=== PATIENT | female | born 1995 | race Caucasian/White ===

== ENCOUNTER 2019-12-18 22:05 | Emergency (ER) | payer MEDICAID, OTHER ==
[~2019-12-18] VITALS: Ht 160 cm; Wt 68.3 kg
[~2019-12-18 22:05] MED LIST: ACHD5005 PO; CITA10TA PO; DCS100C PO; FERR325T74 PO; FRS325T PO; IBP600T1 PO; LBT200T PO; LISD50CA2 PO; PREN1TAB19 PO; SPRINTEC PO
--- NOTE | 2019-12-18 22:41 | ED Cough/URI ---
General Chief Complaint: Cough/Cold/Flu Symptoms Stated Complaint: HIVES, COUGH,CHILLS, FEVER Source: patient Exam Limitations: no limitations History of Present Illness Date Seen by Provider: Dec 18, 2019 Time Seen by Provider: 22:29 Initial Comments Patient resists ER by private conveyance with chief complaint of 5 days of cough, chills, body aches, fever, and now tonight she has hives and a rash. She states pretty sure she has influenza. She has no significant medical history. She denies asthma smoking or being around cigarette smoke. She is not short of breath wheezy. She does not have a productive cough. She is having quite a bit of itching with her hives but they are improving since she arrived. She did take some NyQuil shortly before the hives started so she suspects that that was what caused it. Allergies and Home Medications Allergies Coded Allergies: Codeine (Unverified Allergy, Mild, 01/14/10) Home Medications Docusate Sodium 100 Mg Cap, 100 MG PO BID Prescribed by: SURI ALEGRIA on 07/02/13827 Ferrous Sulfate 325 Mg Tablet, 325 MG PO DAILY, (Reported) Ferrous Sulfate 325 Mg Tab, 325 MG PO BID WITH MEALS Prescribed by: SURI ALEGRIA on 07/02/13827 Hydrocodone Bit/Acetaminophen 1 Tab Tablet, 0 TAB PO Q4H PRN Prescribed by: SURI ALEGRIA on 07/02/13827 Ibuprofen 600 Mg Tab, 600 MG PO Q6H Prescribed by: SURI ALEGRIA on 07/02/13827 Labetalol Hcl 200 Mg Tablet, 100 MG PO BID Prescribed by: SURI ALEGRIA on 07/02/13827 Vit/Fe Fumarate/Fa 1 Each Tablet, 1 EACH PO DAILY, (Reported) Patient Home Medication List Home Medication List Reviewed: Yes Review of Systems Review of Systems Constitutional: No chills, No diaphoresis EENTM: see HPI; No ear discharge, No ear pain, No blurred vision Respiratory: cough; No short of breath Cardiovascular: No chest pain, No palpitations, No syncope, No vascular heart diseas Gastrointestinal: No abdominal pain, No constipation, No diarrhea Genitourinary: No discharge, No dysuria Musculoskeletal: No back pain, No joint pain Skin: see HPI, change in color, pruritus, rash Psychiatric/Neurological: Denies Headache, Denies Numbness, Denies Paresthesia Past Wjhqhng-Orfjjk-Exzevf Hx Patient Social History Alcohol Use: Denies Use Recreational Drug Use: No Smoking Status: Never a Smoker Recent Foreign Travel: No Contact w/Someone Who Travel: No Immunizations Up To Date Tetanus Booster (TDap): Less than 5yrs PED Vaccines UTD: No Past Medical History Reproductive Disorders: No Female Reproductive Disorders: Denies Sexually Transmitted Disease: Yes (tx. for Chlamydia; IVONE negative) HIV/AIDS: No Depression Adverse Reaction/Blood Tranf: No Physical Exam Capillary Refill : Height: '" Weight: 173lbs. oz. 78.439115tk; BMI Method:Stated General Appearance: WD/WN, no apparent distress Eyes: Bilateral Eye Normal Inspection, Bilateral Eye PERRL, Bilateral Eye EOMI HEENT: PERRL/EOMI, normal ENT inspection, TMs normal, pharynx normal Neck: non-tender, full range of motion, supple, normal inspection Respiratory: lungs clear, normal breath sounds, no respiratory distress, no accessory muscle use Cardiovascular: normal peripheral pulses, regular rate, rhythm, no edema, tachycardia Neurologic/Psychiatric: alert, normal mood/affect, oriented x 3 Skin: rash (faint, hives that are pruritic) Progress/Results/Core Measures Suspected Sepsis SIRS Temperature: Pulse: Respiratory Rate: Blood Pressure / Mean: Results/Orders Micro Results Microbiology 12/18/19 Influenza Types A,B Antigen (YOGESH) - Final, Complete My Orders Orders - STEPH AGUILA Diphenhydramine Tablet (Benadryl Tablet) (12/18/19 22:45) Influenza A And B Antigens (12/18/19 22:38) Medications Given in ED Current Medications Medications Dose Ordered Sig/Ken Route Start Time Stop Time Status Last Admin Dose Admin Diphenhydramine HCl 25 mg ONCE ONCE PO 12/18/19 22:45 12/18/19 22:46 DC 12/18/19 22:55 25 MG Vital Signs/I&O Capillary Refill : Progress Note : Time: 23:02 Progress Note Suspect influenza. We'll give her some Benadryl for her pruritus. She's been sick for 2 long to no benefit from Tamiflu. We can give her some Tessalon Perles and ondansetron for her symptoms. Note for work. Departure Impression Primary Impression: Influenza B Additional Impression: Hives Disposition: HOME, SELF-CARE Condition: Stable Departure-Patient Inst. Decision time for Depature: 23:03 Referrals: NO,LOCAL PHYSICIAN (PCP/Family) Primary Care Physician Patient Instructions: Hives (DC), Flu, Cough, Adult (DC) Add. Discharge Instructions: Expect to be sick up to 2 weeks total. Return to work when you are 24 hours fever free without antipyretics. Ondansetron one tablet every 6 hours under the tongue as necessary for nausea or vomiting. Benadryl 1-2 tablets every 6 hours as needed for itching. Drink lots of fluids and use humidifiers and vapor rubs for congestion. Mucinex may be helpful if your secretions are too thick to cough up. Tylenol 1000 mg every 8 hours as needed for body aches or fever. Motrin 800 mg every 8 hours as needed for body aches or fever. Tessalon Perles 1 capsule every 6 hours as needed for cough. All discharge instructions reviewed with patient and/or family. Voiced understanding. Scripts Benzonatate (TESSALON PERLES) 100 Mg Capsule 100 MG PO Q6H PRN for COUGH, #30 CAP 0 Refills Prov: STEPH AGUILA 12/18/19 Ondansetron (Ondansetron Odt) 4 Mg Tab.rapdis 4 MG PO Q6H PRN for NAUSEA/VOMITING, #8 TAB 0 Refills Prov: STEPH AGUILA 12/18/19 Work/School Note: Work Release Form Date Seen in the Emergency Department: Dec 18, 2019 Return to Work: Jan 01, 2020 Restrictions: Return-No Fever (24hrs) STEPH AGUILA Dec 18, 2019 22:41
[2019-12-18] MEDS ORDERED: diphenhydrAMINE 25 MG TAB (BENADRYL) PO ONE (22:45)
[2019-12-18] MEDS ORDERED: BENZ100C18 PO (23:08)
[2019-12-18] MEDS ORDERED: RX-ONDANSETRON 4 MG ODT (ZOFRAN) PPK #4 PO STA (23:08)
[2019-12-18] MEDS ORDERED: ONDA4TAB11 PO (23:08)
[2019-12-18 23:18] VITALS: BP 142/72
== END 2019-12-18 23:22 | disposition home or self-care (01) ==
LOC: EDUNIT# 22:05 → ER 22:07
DX: J10.1 Influenza due to other identified influenza virus with other respiratory manifestations (principal); L50.9 Urticaria, unspecified; F32.9 Major depressive disorder, single episode, unspecified; Z88.5 Allergy status to narcotic agent
CPT/HCPCS: 87804

== ENCOUNTER → 2021-04-20 | Outpatient (CLI) | payer OTHER ==
[~2021-04-20] MED LIST changes: +BENZ100C18 PO; +GADOBUTROL 7.5 MMOL/7.5 ML (GADAVIST) VIAL IV ONE; +ONDA4TAB11 PO
--- NOTE | 2021-04-20 15:18 | Diagnostic Imaging Report ---
PROCEDURE: MR imaging of the brain with and without contrast. TECHNIQUE: Multiplanar, multisequence MR imaging of the brain was performed with and without contrast. INDICATION: Headaches. Migraines. History of cyst. COMPARISON: CT head without contrast 07/18/2016. FINDINGS: Retrocerebellar cyst matching CSF signal on all sequences consistent with a benign arachnoid cyst. This measures approximately 2.1 x 2.3 cm. No abnormal intracranial signal. No abnormal intracranial enhancement. No restricted water diffusion. No hemosiderin deposition or evidence of intracranial hemorrhage. Normal morphology including the major midline structures, sella and cerebellar pontine angle. No hydrocephalus. Normal intracranial flow voids. The orbits are negative on this nondedicated exam. Paranasal sinuses and mastoids are clear. Normal bone marrow signal. IMPRESSION: 1. Benign retrocerebellar arachnoid cyst measuring up to 2.3 cm. 2. MRI of the brain without and with IV contrast otherwise negative. No acute findings. Dictated by: Dictated on workstation # [id number]
== END ==
LOC: RAD 13:26
PROVIDERS: ATTEND Nurse Practitioner Family
DX: G43.109 Migraine with aura, not intractable, without status migrainosus (principal); G93.0 Cerebral cysts
CPT/HCPCS: 70553

== ENCOUNTER 2022-04-06 20:08 | Emergency (ER) | payer SELFPAY ==
[~2022-04-06] VITALS: Ht 157.4 cm; Wt 69.7 kg
[~2022-04-06 20:08] MED LIST changes: -GADOBUTROL 7.5 MMOL/7.5 ML (GADAVIST) VIAL IV ONE
--- NOTE | 2022-04-06 20:38 | ED Back Pain ---
General Chief Complaint: Back Problems Stated Complaint: BACK PAIN Nursing Triage Note: PT ARRIVAL TO ER WITH COMPLAINT OF LOWER LEFT SIDED BACK PAIN X2 DAYS. PT STATES THAT IT STARTED YESTERDAY MORNING WHILE WORKING. PT STATES THAT IT JUST STARTED HURTING WHILE WALKING. PT STATES THAT SHE DOESN'T FEEL ITS WORK RELATED SO THEREFORE DIDN'T REPORT IT. 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 Source of Information: Patient Exam Limitations: No Limitations History of Present Illness Date Seen by Provider: April 06, 2022 Time Seen by Provider: 20:19 Initial Comments Patient is a 26-year-old female who presents to the emergency room with a chief complaint of low back pain. 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 She states she did not do any unusual heavy lifting, pushing or pulling. She denies any trauma or falls. She states she did gymnastics for about 8 years and this pain feels different from the aches and pains related to that. No loss of bowel or bladder function. No numbness between her legs. No weakness in her legs. She says it feels like electricity from her left hip primarily into the back of her left thigh. Standing up straight and bending to sit make her pain worse. She has taken 400 mg of ibuprofen a couple of times in the last 24 hours that has not helped. No recent illnesses. No fevers. No burning with urination. Last menstrual cycle was March 26. She is not on oral control. All other review of systems reviewed and negative except as stated. Location: Lumbar Spine Timing/Duration: 24 Hours Severity: Severe Pain/Injury Location: Back Radiation: Upper Legs (left more than right) Modifying Factors: Worse With Movement Associated Symptoms: denies symptoms Allergies and Home Medications Allergies Coded Allergies: codeine (Unverified Allergy, Mild, 01/14/10) Patient Home Medication List Home Medication List Reviewed: Yes Benzonatate (Tessalon Perles) 100 Mg Capsule, 100 MG PO Q6H PRN for COUGH Prescribed by: STEPH AGUILA on 12/18/19 2308 Docusate Sodium (Colace Capsule) 100 Mg Cap, 100 MG PO BID Prescribed by: SURI ALEGRIA on 07/02/13 0828 Ferrous Sulfate (Iron Supplement) 325 Mg Tablet, 325 MG PO DAILY, (Reported) Entered as Reported by: TEVIN MAGALLON on 06/17/131914 Ferrous Sulfate (Feosol Tab) 325 Mg Tab, 325 MG PO BID WITH MEALS Prescribed by: SURI ALEGRIA on 07/02/13827 Hydrocodone Bit/Acetaminophen (Lorcet 5/325 Mg) 1 Tab Tablet, 0 TAB PO Q4H PRN Prescribed by: SURI ALEGRIA on 07/02/13827 Ibuprofen (Motrin) 600 Mg Tab, 600 MG PO Q6H Prescribed by: SURI ALEGRIA on 07/02/13827 Labetalol Hcl (Labetolol) 200 Mg Tablet, 100 MG PO BID Prescribed by: SURI ALEGRIA on 07/02/13827 Ondansetron (Ondansetron Odt) 4 Mg Tab.rapdis, 4 MG PO Q6H PRN for NAUSEA/VOMITING Prescribed by: STEPH AGUILA on 12/18/192307 Vit/Fe Fumarate/Fa ( Vitamins Tablet) 1 Each Tablet, 1 EACH PO DAILY, (Reported) Entered as Reported by: TEVIN MAGALLON on 06/17/131914 Review of Systems Constitutional: see HPI EENTM: no symptoms reported Respiratory: no symptoms reported Cardiovascular: no symptoms reported Gastrointestinal: no symptoms reported Genitourinary: no symptoms reported : No LMP: Mar 26, 2022 Control/STD Prophylaxis: None Musculoskeletal: back pain, joint pain (left posterior hip) Skin: no symptoms reported Psychiatric/Neurological: No Symptoms Reported All Other Systems Reviewed Negative Unless Noted: Yes Past Mffhblr-Wowabx-Vcpeba Hx Patient Social History Tobacco Use?: Yes Tobacco type used: Cigarettes Smoking Status: Current Everyday Smoker Use of E-Cig and/or Vaping dev: No Substance use?: No Alcohol Use?: Yes Alcohol type: Beer, Hard Liquor Alcohol Frequency: Daily Immunizations Up To Date Tetanus Booster (TDap): Less than 5yrs PED Vaccines UTD: No Influenza Vaccine Up-to-Date: Yes; Up-to-Date Second COVID19 Vaccination Roberto Carlos: 09/16 COVID19 Vaccine Automation Q[employer]: [employer] Past Medical History Surgeries: No Respiratory: No Cardiac: No Neurological: No Reproductive Disorders: No Female Reproductive Disorders: Denies Sexually Transmitted Disease: Yes (tx. for Chlamydia; IVONE negative) HIV/AIDS: No Gastrointestinal: No Musculoskeletal: Yes (Knee problems) Endocrine: No Cancer: No Psychosocial: Yes Depression Integumentary: No Blood Disorders: No Adverse Reaction/Blood Tranf: No Physical Exam Vital Signs Vital Signs - First Documented 04/06/22 20:21 Temp 36.3 Pulse 81 Resp 14 B/P (MAP) 112/80 (91) Pulse Ox 99 O2 Delivery Room Air Capillary Refill : Less Than 3 Seconds Height, Weight, BMI Height: '" Weight: 173lbs. oz. [id number]; 28.00 BMI Method:Stated General Appearance: WD/WN, Anxious HEENT: PERRL/EOMI Neck: Normal Inspection Cardiovascular: Regular Rate, Rhythm, Normal Peripheral Pulses Respiratory: Lungs Clear, Normal Breath Sounds, No Accessory Muscle Use, No Respiratory Distress Gastrointestinal: Non Tender, Soft Back: Normal Inspection, Other (tenderness left posterior superior iliac crest at the SI joint. no percussive tenderness to the spine. she has mild tenderness diffusely across the lower back. SLR does not cause radiating pain. intact NV bLE. good strength and equal sensation. DTR 1+ bilat patella) Neurologic/Psychiatric: Oriented x3, No Motor/Sensory Deficits, Normal Mood/Affect Skin: Normal Color, Warm/Dry Progress/Results/Core Measures Results/Orders My Orders Orders - MATEO TAYLOR MD Urine Bedside (04/06/22 20:33) Prednisone Tablet (Deltasone Tablet) (04/06/22 21:00) Orphenadrine Inj (Ed Only) (Norflex Inje (04/06/22 21:00) Ketorolac Injection (Toradol Injection) (04/06/22 21:00) Medications Given in ED Current Medications Medications Dose Ordered Sig/Ken Route Start Time Stop Time Status Last Admin Dose Admin Ketorolac Tromethamine 30 mg ONCE ONCE IM 04/06/22 21:00 04/06/22 21:01 DC 04/06/22 21:02 30 MG Orphenadrine Citrate 60 mg ONCE ONCE IM 04/06/22 21:00 04/06/22 21:01 DC 04/06/22 21:03 60 MG Prednisone 50 mg ONCE ONCE PO 04/06/22 21:00 04/06/22 21:01 DC 04/06/22 21:02 50 MG Vital Signs/I&O 04/06/22 20:21 Temp 36.3 Pulse 81 Resp 14 B/P (MAP) 112/80 (91) Pulse Ox 99 O2 Delivery Room Air Blood Pressure Mean: 91 Progress Progress Note #1: Time: 20:49 Progress Note ED test neg. Progress Note #2: Time: 21:39 Progress Note Feels much better after medications. We talked about ibuprofen dosing. We will send her home on some steroids for the next 4 days. Advised antacids or Pepcid/Prilosec/Zantac while taking steroids and prednisone. Return precautions discussed. She verbalized understanding. All questions are sought and answered. Departure Impression Primary Impression: Sacroiliac joint pain Disposition: HOME, SELF-CARE Condition: Improved Departure-Patient Inst. Decision time for Depature: 21:40 Referrals: [facility]/SAVANA JONES,LOCAL PHYSICIAN (PCP) Primary Care Physician Patient Instructions: Sacroiliac Joint Pain Add. Discharge Instructions: Use heat and ice patches to the sore areas of your back for the next 2 to 3 days. Ibuprofen 3 tablets which is 600 mg every 6-8 hours as needed for pain always take ibuprofen with food. Prednisone 50 mg once a day for the next 4 days. Muscle relaxers twice a day as needed for the next 3 to 5 days. 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 Return to the emergency room for worsening pain, leg weakness, numbness or any other emergent concerning symptoms. Scripts Prednisone (Prednisone) 50 Mg Tab 50 MG PO DAILY for 4 Days, #4 TAB Prov: MATEO TAYLOR MD 04/06/22 Methocarbamol (Methocarbamol) 750 Mg Tablet 750 MG PO Q6-8HR for Back Pain, #15 TAB Prov: MATEO TAYLOR MD 04/06/22 MATEO TAYLOR MD April 06, 2022 20:38
[2022-04-06] MEDS ORDERED: predniSONE 20 MG TAB PO ONE (21:00)
[2022-04-06] MEDS ORDERED: KETOROLAC 30 MG/ML VIAL IM ONE (21:00)
[2022-04-06] MEDS ORDERED: ORPHENADRINE 60 MG/2 ML (NORFLEX) AMP (ED ONLY) IM ONE (21:00)
[2022-04-06] MEDS ORDERED: METH-732 PO (21:42)
[2022-04-06] MEDS ORDERED: PRD50T PO (21:42)
[2022-04-06 21:53] VITALS: BP 103/72
== END 2022-04-06 21:46 | disposition home or self-care (01) ==
LOC: EDUNIT# 20:08 → ER 20:11
DX: M46.1 Sacroiliitis, not elsewhere classified (principal); F17.210 Nicotine dependence, cigarettes, uncomplicated
CPT/HCPCS: 84703; 99284